=== PATIENT | male | born 1965 | race Caucasian/White ===

== ENCOUNTER 2019-02-05 11:54 | Emergency (ER) | payer SELFPAY ==
[~2019-02-05] VITALS: Ht 170.2 cm; Wt 75.7 kg
--- NOTE | 2019-02-05 12:00 | NUR ---
PT [id number] AND KANDI LALA, +SI, -HI, PATIENT STATES "I WANT TO HANG MYSELF" PT IS AAOX3, NOT IN RESPIRATORY DISTRESS, V/S STABLE, KEPT RESTED AND COMFFORTABLE, WILL CONTINUE TO MONITOR.
--- NOTE | 2019-02-05 12:11 | NUR ---
SEEN AND EXAMINED BY ZOEY WATTS.
--- NOTE | 2019-02-05 12:16 | NUR ---
ER PHLEB AT BEDSIDE FOR BLOOD DRAW.
[2019-02-05 12:24] LABS: BASOPHILS # (AUTO) 0.1 /CMM (0.0-0.2); BASOPHILS % (AUTO) 1.1 % (0.0-2.0); EOSINOPHILS % (AUTO) 1.5 % (0.0-6.0); HEMATOCRIT 47 % (39-51); HEMOGLOBIN 16.4 g/dL (13.5-17.5); LYMPHOCYTES # (AUTO) 3.6 /CMM (0.8-4.8); LYMPHOCYTES % (AUTO) 38.7 % (20.0-44.0); MEAN CORPUSCULAR HGB CONC 35 g/dl (31.0-36.0); MEAN CORPUSCULAR VOLUME 92 fL (80-96); MONOCYTES # (AUTO) 0.7 /CMM (0.1-1.30); MONOCYTES % (AUTO) 7.2 % (2.0-12.0); NEUTROPHILS # (AUTO) 4.8 /CMM (1.8-8.9); NEUTROPHILS % (AUTO) 51.5 % (43.0-81.0); PLATELET COUNT (AUTO) 273 /CMM (150-450); WHITE BLOOD COUNT (AUTO) 9.3 K/uL (4.3-11.0)
--- NOTE | 2019-02-05 12:32 | NUR ---
URINAL GIVEN BUT UNABLE TO PROVIDE URINE SPECIMEN.
[2019-02-05 12:34] LABS: CALCIUM, SERUM 8.8 mg/dL (8.5-10.1); CARBON DIOXIDE 22 mmol/L (21-32); CHLORIDE 104 mmol/L (98-107); CREATININE 0.7 mg/dL (0.6-1.3); GLUCOSE 101 mg/dL (74-106); POTASSIUM 3.7 mmol/L (3.5-5.1); SODIUM SERUM 139 mmol/L (136-145); UREA NITROGEN, BLOOD 8 mg/dL (7-18)
[2019-02-05 12:43] LABS: ALANINE AMINOTRANSFERASE 94 U/L (12-78); ALBUMIN 4.4 g/dL (3.4-5.0); ALKALINE PHOSPHATASE 127 U/L (46-116); ASPARTATE AMINOTRANSFERASE 46 U/L (15-37); BILIRUBIN,DIRECT 0.1 mg/dL (0.0-0.2); BILIRUBIN,TOTAL 0.3 mg/dL (0.2-1.0); SALICYLATE 4.3 mg/dL (2.8-20.0)
[2019-02-05 12:44] LABS: ACETAMINOPHEN < 2 ug/ml (10-30); ALCOHOL, BLOOD 342 mg/dL (0-0)
[2019-02-05 12:52] LABS: APPEARANCE,URINE Clear (CLEAR); BILIRUBIN,URINE Negative (NEGATIVE); BLOOD, URINE Negative Ery/uL (NEGATIVE); COLOR,URINE Light yellow (YELLOW); KETONES,URINE Negative (NEGATIVE); LEUKOCYTE ESTERASE ,URINE Negative (NEGATIVE); NITRITE, URINE Negative (NEGATIVE); PH,URINE 5.5 (5.0-8.0); PROTEIN,URINE Negative (NEGATIVE); UGLUCOSE Negative (NEGATIVE); UROBILINOGEN,URINE 0.2 EU/dL (0.2)
[2019-02-05] MEDS ORDERED: IV NS 0.9% 1,000 ML BAG IV ONE (13:00)
[2019-02-05] MEDS: IV NS 0.9% 1,000 ML BAG IV ONE ×2 (14:08→14:13)
[2019-02-05] MEDS ORDERED: HALOPERIDOL LACTATE INJ 5 MG/ML VIAL ONE (15:08)
[2019-02-05] MEDS ORDERED: HALOPERIDOL LACTATE INJ 5 MG/ML VIAL IM ONE (15:30)
[2019-02-05] MEDS ORDERED: LORAZEPAM INJ 2 MG/ML VIAL ONE (15:41)
[2019-02-05] MEDS ORDERED: LORAZEPAM INJ 2 MG/ML VIAL IM ONE (16:00)
--- NOTE | 2019-02-05 23:00 | NUR ---
Patient is resting comfortably in bed with eyes closed. Easily aroused. VSS. family at the bed side
--- NOTE | 2019-02-06 03:00 | NUR ---
pt was seen and evaluated by Lenin, [employer] at the bed side.
--- NOTE | 2019-02-06 03:03 | NUR ---
Patient discharged to home in stable condition. Written and verbal after care instructions given. Patient verbalized understanding of instruction. pt will uber for ride back home. pt left w/ steady gate. IV removed. Catheter intact and site benign. Pressure and 4x4 applied to site. No bleeding noted.
[2019-02-06 03:08] VITALS: BP 11/79
== END 2019-02-06 03:09 | disposition home or self-care (01) ==
LOC: ER 11:58
DX: F10.129 Alcohol abuse with intoxication, unspecified (principal); R45.851 Suicidal ideations; E86.0 Dehydration; I10 Essential (primary) hypertension; F17.200 Nicotine dependence, unspecified, uncomplicated; R00.0 Tachycardia, unspecified; Y90.5 Blood alcohol level of 100-119 mg/100 ml
CPT/HCPCS: 36415; 80048; 80076; 80305; 80307 ×3; 80329; 81001; 85025; 96360; 96361; 96372 ×2; 99285; 99406; G0480; J1630; J2060; J7030 ×2; 81000-TC